=== PATIENT | female | born 1945 | race Caucasian/White ===

== ENCOUNTER 2019-08-09 13:13 | Emergency (ER) | payer OTHER, BC ==
[~2019-08-09] VITALS: Ht 157.5 cm; Wt 90.7 kg
[2019-08-09 13:22] VITALS: Ht 157.5 cm; Wt 90.7 kg
[2019-08-09 14:00] VITALS: BP 132/58
== END 2019-08-09 15:32 | disposition home or self-care (01) ==
LOC: ED 13:13
DX: S80.01XA Contusion of right knee, initial encounter (principal); I10 Essential (primary) hypertension; M19.90 Unspecified osteoarthritis, unspecified site; Z98.890 Other specified postprocedural states; W01.0XXA Fall on same level from slipping, tripping and stumbling without subsequent striking against object, initial encounter; Y93.01 Activity, walking, marching and hiking; Y92.89 Other specified places as the place of occurrence of the external cause; Y99.8 Other external cause status